=== PATIENT | female | born 1980 | race Caucasian/White ===

== ENCOUNTER 2022-09-01 21:24 | Emergency (ER) | payer OTHER, SELFPAY ==
[2022-09-01 21:33] VITALS: BP 138/93; PULSE 97; RESP 14; TEMP 37; O2SAT 99; BMI 28.3
[2022-09-01] MEDS: KETOROLAC 30 MG/ML inj IVP (22:22)
[2022-09-01] MEDS: 0.9 % SODIUM CHLORIDE 1000 ml 1,000 ML IV (22:23)
[2022-09-01 22:26] LABS: PCR FLU A Negative PCR FLU A (Negative); PCR FLU B Negative PCR FLU B (Negative); PCR RSV Negative PCR RSV (Negative)
[2022-09-01 22:27] LABS: SARS PCR* POSITIVE SARS-CoV-2 (Negative)
[2022-09-01 23:30] VITALS: BP 132/87; PULSE 77; RESP 16
--- NOTE | 2022-09-02 15:18 | ED_ITS ---
HPI - Headache General Chief Complaint: Headache/Migraine Stated Complaint: body aches, headache Time Seen by Provider: 09/01/22 21:50 History of Present Illness HPI Narrative: 42 year-old woman presenting to the emergency department with concern of headache. Apparently during a virtual visit today there was concern of meningitis and recommending that she be seen. Started to feel off yesterday she says and then has developed further severe headache chills bodyaches. She demonstrates the headache at the posterior neck and around to the sides of her head. Maybe some mild nausea. No rash. Not identifying any exposures. No specific joint pain. Really just generalized aches. No diarrhea. As we discussed symptoms, she would like some relief of her headache if possible. The ibuprofen/ NSAIDs had taken earlier just haven't seemed to make much of a difference. Related Data Home Medications Medication Instructions Recorded Confirmed No Known Home Medications 09/01/22 09/01/22 Allergies Allergy/AdvReac Type Severity Reaction Status Date / Time morphine Allergy Hives Verified 09/01/22 21:33 Review of Systems Status of ROS: Reports: 6 or more systems reviewed and unremarkable except as noted in History and below [facility] Social History Smoking Status: Current every day smoker How often do you have a drink containing alcohol: 2-3 times a week How many standard drinks containing alcohol do you have on a typical day: 1 or 2 AUDIT-C Alcohol total score: 3 Non-prescribed substance use: denies use service: No Exam Narrative: Exam Narrative: Pleasant. Speaking easily, fluidly. Breathing easily. Skin is warm and dry. No rash apparent. Head is atraumatic. CN 2 through 12 look to be intact. Pupils are brisk and reactive. Is not demonstrating nuchal rigidity. Sore though to palpation over pericervical musculature and medial trapezius musculature. Negative Kernig?s and Brudzinski's. Lungs are clear. Heart is with a mildly elevated rate in a regular rhythm. Moving all extremities without difficulty; with good strength. No sensory deficits apparent. Well-perfused peripherally. Oropharynx is moist not particularly erythematous. Neck is without lymphadenopathy. No joint swelling or redness appreciated. Const: Vital Signs, click to edit/add: Vital Signs - 24 hr 09/01/22 21:33 09/01/22 23:30 Temperature 98.6 F Pulse Rate [Right Pulse Oximeter] 97 77 Respiratory Rate 14 16 Blood Pressure [Ri ght Upper Arm] 138/93 H 132/87 Pulse Oximetry 99 Oxygen Delivery Me thod Room Air Course Vital Signs Vital signs: Initial Vital Signs Temperature 98.6 F 09/01/22 21:33 Temperature Source Temporal Artery Scan 09/01/22 21:33 Pulse Rate 97 09/01/22 21:33 Respiratory Rate 14 09/01/22 21:33 Blood Pressure 138/93 H 09/01/22 21:33 Blood Pressure Mean 108 09/01/22 21:33 Blood Pressure Position Sitting 09/01/22 21:33 Pulse Oximetry 99 09/01/22 21:33 Oxygen Delivery Method 09/01/22 21:33 Vital Signs Temperature 98.6 F 09/01/22 21:33 Pulse Rate 97 09/01/22 21:33 Respiratory Rate 14 09/01/22 21:33 Blood Pressure 138/93 H 09/01/22 21:33 Pulse Oximetry 99 09/01/22 21:33 Oxygen Delivery Method 09/01/22 21:33 Temperature 98.6 F 09/01/22 21:33 Pulse Rate 77 09/01/22 23:30 Respiratory Rate 16 09/01/22 23:30 Blood Pressure 132/87 09/01/22 23:30 Pulse Oximetry 99 09/01/22 21:33 Oxygen Delivery Method 09/01/22 21:33 MDM - Headache MDM Narrative Medical decision making narrative: I suspect more viral etiology, probably COVID, to these symptoms. I don't see the evidence of meningitis beyond the headache. Triple screen collected. IV fluids and ketorolac given. She didn't feel she needed anything for nausea. Was positive for Covid. Maybe feels a little bit better with treatment but not much. Feels she can manage with symptomatic treatment at home. We did discuss potential treatment with Paxlovid but opted not to without other comorbidities. Lab Data Attestation: I reviewed the patient's lab results. Labs: Lab Results 09/01/22 Range/Units 21:39 SARS-CoV-2 (PCR) POSITIVE SARS-CoV-2 A (Negative) Influenza Type A (PCR) Negative PCR FLU A (Negative) Influenza Type B (PCR) Negative PCR FLU B (Negative) RSV (PCR) Negative PCR RSV (Negative) Discharge Plan Discharge Clinical Impression: COVID-19, Headache, Myalgia Patient Disposition: Home, Self-Care Condition: Stable Instructions: COVID-19 (Coronavirus Disease 2019) (ED) Additional Instructions: Continue to focus on hydration. Can take up to 800 mg of ibuprofen per dose or up to 1000 mg of acetaminophen per dose. Alternative to the ibuprofen might be up to 500 mg naproxen 2 times daily. If starting to feel more short of breath, consider getting an oxygen saturation monitor and return to the emergency department for oxygen saturations of 90% or less. Prescriptions: No Action No Known Home Medications Follow Up/Referrals: Provider,Not a Local [Primary Care Provider] - Stand Alone Forms: [employer] Info Instructions
== END 2022-09-01 23:31 | disposition home or self-care (01) ==
PROVIDERS: Emergency Provider Family Medicine
DX: U07.1 COVID-19 (principal); R51.9 Headache, unspecified
CPT/HCPCS: 87502; 87634; 87635; 96374; 99283; 99284; J1885; J7030

== ENCOUNTER 2023-08-11 21:55 | Emergency (ER) | payer OTHER, SELFPAY ==
[2023-08-11 22:08] VITALS: BP 124/87; PULSE 84; RESP 16; TEMP 36.8; O2SAT 97; BMI 28.3
--- NOTE | 2023-08-11 22:24 | ED.GENADULT ---
HPI - General Adult General Chief complaint: Unspecified Complaint, Adult Stated complaint: headache, stiffness in neck, heart fluttering Time Seen by Provider: 08/11/23 22:24 History of Present Illness HPI narrative: headache since june. chiro before and hudson went away, wednesday came back and still there. states also started dizzy, nausea, night sweats, alternating ear pressure/pain. td palpitations. back also stiff 43-year-old woman presenting to the emergency department within above complaints but seems to be primary complaint of headache. Current headache has been present for the last 4 days. She describes electrical pulses of pain over a persistent throbbing on relieved over the last 4 days. Feels a sensation of ear pressure in the right ear as well. No sinus issues. The electrical pulses she describes is coming posterior head and radiating up to the parietal scalp. Mostly on the right but can also involve the left. Is nauseated and with photophobia. Went to a chiropractor earlier today and received manipulation and just isn't any better. I ask more about what her concerns are and it seems as though meningitis is of major concern. She has not had any fever. She has not had any radicular symptoms beyond what is described above. Other history is of new onset headache beginning end of May and continuing for nearly 8 weeks until and was ultimately relieved she thinks by chiropractic treatment. Similar characteristics to this one. No weakness or discoordination. There was no trauma. Further questioning though reveals that she did have a trip and fall event up the stairs day before or night before onset of this headache. There is some question also of whether not this initial headache was brought about by discontinuation of alcohol. She has realized that she has a problem. Initial headache began though some weeks after discontinuation of her sobriety and question was whether not this may have been related to detoxing. She did begin drinking again after and last drink was on . Related Data Home Medications Medication Instructions Recorded Confirmed No Known Home Medications 09/01/22 09/01/22 Allergies Allergy/AdvReac Type Severity Reaction Status Date / Time morphine Allergy Hives Verified 09/01/22 21:33 latex AdvReac Rash Verified 08/11/23 22:11 Review of Systems Status of ROS: Reports: 6 or more systems reviewed and unremarkable except as noted in History and below PFSH PFSH Social History Smoking Status: Current every day smoker How often do you have a drink containing alcohol: 2-3 times a week How many standard drinks containing alcohol do you have on a typical day: 1 or 2 AUDIT-C Alcohol total score: 3 Non-prescribed substance use: denies use service: No Exam Narrative: Exam Narrative: Pleasant. Seems generally uncomfortable. Demonstrating some mild photophobia. Head looks to be atraumatic. Moves head/neck a little stiffly. Moving all extremities without difficulty. Appears to have good strength throughout. Well-perfused peripherally. Cranial nerves 2-12 intact. Pupils are 2-3 mm and briskly appropriately reactive and accommodating. Oropharynx is normal. She does not have midline neck tenderness. Is quite tense and tender to palpation over the trapezius and the paracervical musculature the right greater than left. She is tender to percussion in particular over the occipital nerve foramen bilaterally again right greater than left. TMs bilaterally are clear. TMJ does not appear to be particularly tender. Const: Vital Signs, click to edit/add: Vital Signs - 24 hr 08/11/23 22:08 08/11/23 22:52 08/11/23 23:08 Temperature 98.3 F 98.3 F Pulse Rate [Pulse Oximeter] 84 Respiratory Rate 16 Respiratory Rate [ Head] 16 Blood Pressure [Ri ght Upper Arm] 124/87 Pulse Oximetry 97 Oxygen Delivery Me thod Room Air 08/11/23 23:42 08/11/23 23:55 Temperature 98.6 F 98.6 F Pulse Rate [Pulse Oximeter] 79 Respiratory Rate 16 Respiratory Rate [ Head] Blood Pressure [Ri ght Upper Arm] 118/78 Pulse Oximetry 97 Oxygen Delivery Me thod Room Air Documenting provider has reviewed patient's vital signs: yes Course Vital Signs Vital signs: Initial Vital Signs Temperature 98.3 F 08/11/23 22:08 Temperature Source Temporal Artery Scan 08/11/23 22:08 Pulse Rate 84 08/11/23 22:08 Respiratory Rate 16 08/11/23 22:08 Blood Pressure 124/87 08/11/23 22:08 Blood Pressure Mean 99 08/11/23 22:08 Blood Pressure Position Sitting 08/11/23 22:08 Pulse Oximetry 97 01/03/24 22:08 Oxygen Delivery Method Room Air 08/11/23 22:08 Vital Signs Temperature 98.3 F 08/11/23 22:08 Pulse Rate 84 08/11/23 22:08 Respiratory Rate 16 08/11/23 22:08 Blood Pressure 124/87 08/11/23 22:08 Pulse Oximetry 97 08/11/23 22:08 Oxygen Delivery Method Room Air 08/11/23 22:08 Temperature 98.6 F 08/11/23 23:55 Pulse Rate 79 08/11/23 23:42 Respiratory Rate 16 08/11/23 23:42 Blood Pressure 118/78 08/11/23 23:42 Pulse Oximetry 97 08/11/23 23:42 Oxygen Delivery Method Room Air 08/11/23 23:42 Medications Administered Medications: Discontinued Medications Generic Name Dose Route Start Last Admin Trade Name Santanaq PRN Reason Stop Dose Admin Dexamethasone 10 mg 08/11/23 22:46 08/11/23 22:50 Dexamethasone 10 Mg/Ml Inj IVP 08/11/23 22:47 10 mg ONCE ONE Administration Ketorolac Tromethamine 30 mg 08/11/23 22:46 08/11/23 22:52 Ketorolac 30 Mg/Ml Inj IVP 08/11/23 22:47 30 mg ONCE ONE Administration Ondansetron HCl 4 mg 08/11/23 22:46 08/11/23 22:57 Ondansetron 2 Mg/Ml Inj IVP 08/11/23 22:47 4 mg ONCE ONE Administration Medical Decision Making MDM Narrative Medical decision making narrative: The resolution of headache in the interim is reassuring. New onset headache overall is not. I am not sure that I can not correlate this necessarily with alcohol except for the trip up the stairs. I am wondering if this most recently may have jennifer her neck resulting in some facet irritation and resulting muscle spasm along with now some component of occipital neuralgia. I do not think that she demonstrates meningeal signs otherwise here per her concern. Furthermore no infectious prodrome evident otherwise. She accepts doubtful meningitis and would like relief of her headache at this point. Might benefit from going to an osteopathic physician or returning to a chiropractor for more gentle manipulation. With apparent occipital nerve component might benefit from ice packs or neuroepileptic medication like gabapentin or Tegretol. Steroid injections as well either at the occipital nerve or also in the neck/facets. Try to help here with placement of the soft collar though this might place more pressure on the nerve but might relieve the tension and perceiving in her neck. Also place IV, normal saline, ketorolac, Zofran and singular dose of dexamethasone. On reassessment she has actually been able to sleep. Noting pain overall improved from a 9 to a 6 but does feel like she might be able to go home. We did discuss potentially giving him pain dose ketamine piggyback or brought up potential ?muscle relaxer? for muscle issue. I think this is not a bad option particularly as she reports that the electrical pulsing pain that she had seems to have resolved. Also with this in mind might not be so inclined for Tegretol or gabapentin. Did also place a narrow soft collar which seems to even help when she is laying down a little bit. Feels that she is improved enough to depart the emergency department. See patient discharge plan Lab Data Labs: Lab Results 08/11/23 Range/Units 22:10 SARS-CoV-2 (PCR) Negative SARS-CoV-2 (Negative) Influenza Type A (PCR) Negative PCR FLU A (Negative) Influenza Type B (PCR) Negative PCR FLU B (Negative) RSV (PCR) Negative PCR RSV (Negative) Discharge Plan Discharge Clinical Impression: Occipital neuralgia, Headache, Cervicalgia Patient Disposition: Home w/ Parent or Adult Condition: Improved Additional Instructions: Stay well-hydrated. I think a good night's sleep would do you well. Would stretch your neck a couple of times a day with gentle pull-downs as demonstrated. Can wear the soft collar over this next week as needed for comfort. Also see handout on stretches for the upper back. Yes. Acupuncture might be something worth looking into. You might try gentle manipulation again with you chiropractor or seek out osteopathic (DO) physician who does manipulations. Dr. Rodrigues at the [facility] might be able to do this. You might schedule follow-up with primary care provider/clinic for further evaluation or consideration of other medication options, even possible injections, should this continue to be a problem. Physical therapy might also be able to help. Can take up to 800 mg of ibuprofen per dose up to 1000 mg of acetaminophen per dose. These can be combined as well. As discussed, cyclobenzaprine (Flexeril) from [employer]. Prescriptions: No Action No Known Home Medications Follow Up/Referrals: Provider,Not a Local [Primary Care Provider] - Stand Alone Forms: [employer] Info Instructions
[2023-08-11] MEDS: dexAMETHasone 10 MG/ML inj IVP (22:50)
[2023-08-11 22:52] VITALS: TEMP 36.8
[2023-08-11] MEDS: KETOROLAC 30 MG/ML inj IVP (22:52)
[2023-08-11 22:54] LABS: PCR FLU A Negative PCR FLU A (Negative); PCR FLU B Negative PCR FLU B (Negative); PCR RSV Negative PCR RSV (Negative)
[2023-08-11] MEDS: ONDANSETRON 2 MG/ML inj 4 MG IVP (22:57)
[2023-08-11 23:08] VITALS: RESP 16; O2SAT 99
[2023-08-11 23:19] LABS: SARS PCR* Negative SARS-CoV-2 (Negative)
[2023-08-11 23:42] VITALS: BP 118/78; PULSE 79; RESP 16; TEMP 37; O2SAT 97
[2023-08-11 23:55] VITALS: TEMP 37
[2023-08-12 00:19] VITALS: BP 118/78; PULSE 79; RESP 16; TEMP 37
== END 2023-08-12 00:19 | disposition home or self-care (01) ==
PROVIDERS: Emergency Provider Family Medicine
DX: M54.81 Occipital neuralgia (principal); R51.9 Headache, unspecified; M54.2 Cervicalgia
CPT/HCPCS: 87631; 96374; 96375; 99284; J1100; J1885; J2405